=== PATIENT | male | born 1970 | race Caucasian/White ===

== ENCOUNTER 2019-02-01 21:03 | Emergency (ER) | payer MEDICAID ==
--- NOTE | 2019-02-01 21:13 | ED Physician Chart ---
ED Chief Complaint/HPI - Patient Information Date Seen:: 02/01/19 Time Seen:: 21:13 Chief Complaint:: Alcohol intoxication History of Present Illness:: 48 yo male was found sprawled outside [facility]. [place] squad and EMS was called. They found pt hardly responsive. They checked pt's blood glucose level at 511. Pt was then brought to ER for further evaluation. ED Review of Systems - Review of Systems General/Constitutional: No fever, No chills Skin: No skin lesions Head: No headache Eyes: No pain ENT: No nasal drainage Neck: No neck pain Cardio Vascular: No chest pain Pulmonary: No SOB GI: No nausea, No vomiting Musculoskeletal: No bone or joint pain Neurological: No focal symptoms ED Past Medical History - Past Medical History Past Medical History: HTN, DM, Other (questionable cancer) Social History: Non Smoker, Alcohol, No Drug Use Family Medical History - Family Member Mother History Unknown: Yes ED Physical Exam - Physical Examination Other Gen/Cons comments:: Drowsy, open eyes to voice Head: Atraumatic Eyes: PERRL, EOMI Skin: No skin lesions ENMT: Nasal exam nl Neck: No nuchal rigidity Respiratory: Clear to Auscultation Cardio Vascular: RRR, No murmur, gallop, rubs, NL S1 S2 GI: No tenderness/rebounding/guarding Extremities: normal strength in all extremities Neuro/Psych: No focal deficits Other Neuro/Psych comments:: Follows command ED Labs/Radiology/EKG Results - Lab Results Results: Laboratory Last Values WBC 4.0 Th/cmm (4.8-10.8) L 02/01/19 21:40 RBC 4.24 Mil/cmm (4.30-5.70) L 02/01/19 21:40 Hgb 11.3 gm/dL (12-16) L 02/01/19 21:40 Hct 34.3 % (41.0-60) L 02/01/19 21:40 MCV 81.0 fl (80-99) 02/01/19 21:40 MCH 26.6 pg (26.0-30.0) 02/01/19 21:40 MCHC Differential 32.9 pg (28.0-36.0) 02/01/19 21:40 RDW 15.0 % (11.5-20.0) 02/01/19 21:40 Plt Count 326 Th/cmm (150-400) 02/01/19 21:40 MPV 7.1 fl 02/01/19 21:40 Neutrophils % 57.2 % (40.0-80.0) 02/01/19 21:40 Lymphocytes % 28.6 % (20.0-50.0) 02/01/19 21:40 Monocytes % 10.3 % (2.0-10.0) H 02/01/19 21:40 Eosinophils % 2.1 % (0.0-5.0) 02/01/19 21:40 Basophils % 1.8 % (0.0-2.0) 02/01/19 21:40 PT 9.5 SECONDS (9.5-11.5) 02/01/19 21:41 INR 0.91 (0.5-1.4) 02/01/19 21:41 PTT (Actin FS) 24.5 SECONDS (26.0-38.0) L 02/01/19 21:41 Sodium 137 mEq/L (136-145) 02/01/19 21:41 Potassium 4.0 mEq/L (3.5-5.1) 02/01/19 21:41 Chloride 99 mEq/L (98-107) 02/01/19 21:41 Carbon Dioxide 26.9 mEq/L (21.0-31.0) 02/01/19 21:41 Anion Gap 15.1 (7.0-16.0) 02/01/19 21:41 BUN 11 mg/dL (7-25) 02/01/19 21:41 Creatinine 1.0 mg/dL (0.7-1.3) 02/01/19 21:41 Est GFR ( Amer) > 60.0 ml/min (>90) 02/01/19 21:41 Est GFR (Non-Af Amer) > 60.0 ml/min 02/01/19 21:41 BUN/Creatinine Ratio 11.0 02/01/19 21:41 Glucose 442 mg/dL (70-105) H 02/01/19 21:41 POC Glucose 305 MG/DL (70 - 105) H 02/02/19 05:53 Whole Bld Lactic Acid 3.38 mmol/L (0.60-1.99) H* 02/01/19 23:47 Calcium 9.1 mg/dL (8.6-10.3) 02/01/19 21:41 Total Bilirubin 0.3 mg/dL (0.3-1.0) 02/01/19 21:41 AST 28 U/L (13-39) 02/01/19 21:41 ALT 15 U/L (7-52) 02/01/19 21:41 Alkaline Phosphatase 45 U/L (34-104) 02/01/19 21:41 Creatine Kinase 350 U/L (30-223) H 02/01/19 21:41 CK-MB (CK-2) 11.3 ng/mL (0.6-6.3) H 02/01/19 21:41 Troponin I < 0.01 ng/mL (0.01-0.05) L 02/01/19 21:41 B-Natriuretic Peptide 8.9 pg/mL (5.0-100.0) 02/01/19 21:41 Total Protein 7.3 gm/dL (6.0-8.3) 02/01/19 21:41 Albumin 4.1 gm/dL (4.2-5.5) L 02/01/19 21:41 Globulin 3.2 gm/dL 02/01/19 21:41 Albumin/Globulin Ratio 1.3 (1.0-1.8) 02/01/19 21:41 Urine Source CLEAN C 02/01/19 21:45 Urine Color YELLOW 02/01/19 21:45 Urine Clarity CLEAR (CLEAR) 02/01/19 21:45 Urine pH 5.5 (4.6 - 8.0) 02/01/19 21:45 Ur Specific [place] <= 1.005 (1.005-1.030) 02/01/19 21:45 Urine Protein NEGATIVE mg/dL (NEGATIVE) 02/01/19 21:45 Urine Glucose (UA) >=1000 mg/dL (NEGATIVE) H 02/01/19 21:45 Urine Ketones NEGATIVE mg/dL (NEGATIVE) 02/01/19 21:45 Urine Blood NEGATIVE (NEGATIVE) 02/01/19 21:45 Urine Nitrate NEGATIVE (NEGATIVE) 02/01/19 21:45 Urine Bilirubin NEGATIVE (NEGATIVE) 02/01/19 21:45 Urine Urobilinogen 0.2 E.U./dL (0.2 - 1.0) 02/01/19 21:45 Ur Leukocyte Esterase NEGATIVE (NEGATIVE) 02/01/19 21:45 Urine RBC NONE SEEN /hpf (0-5) 02/01/19 21:45 Urine WBC 0-2 /hpf (0-5) 02/01/19 21:45 Ur Epithelial Cells NONE SEEN /lpf (FEW) 02/01/19 21:45 Urine Bacteria OCCASIONAL /hpf (NONE SEEN) 02/01/19 21:45 Urine Opiates Screen NEGATIVE (NEGATIVE) 02/01/19 21:45 Urine Methadone Screen NEGATIVE (NEGATIVE) 02/01/19 21:45 Ur Barbiturates Screen NEGATIVE (NEGATIVE) 02/01/19 21:45 Ur Tricyclics Screen NEGATIVE (NEGATIVE) 02/01/19 21:45 Ur Phencyclidine Scrn NEGATIVE (NEGATIVE) 02/01/19 21:45 Amphetamines Screen NEGATIVE (NEGATIVE) 02/01/19 21:45 U Methamphetamines Scrn NEGATIVE (NEGATIVE) 02/01/19 21:45 U Benzodiazepines Scrn POSITIVE (NEGATIVE) H 02/01/19 21:45 U Cocaine Metab Screen NEGATIVE (NEGATIVE) 02/01/19 21:45 U Cannabinoids Screen NEGATIVE (NEGATIVE) 02/01/19 21:45 Ethyl Alcohol 400 mg/dL (0-10) H 02/01/19 21:41 - Radiology Results Results: CXR: no focal consolidation ED Assessment - Assessment General Assessment: Altered mental status Alcohol intoxication DM II with hyperglycemia Leukopenia Anemia, normocytic Assessment/Comments:: CBC, CMP, PT/PTT, Trop, CK NS 1L IV bolus Regular insulin 10 units SC ED Septic Shock - . Is Septic Shock (SBP<90, OR Lactate>4 mmol\L) present?: No ED Reassessment (Disposition) - Reassessment Reassessment:: Re-checked lactic acid 2 hours later, decreased from 3.5 to 3.38. Re-checked glucose level 8 hours later, decreased from 387 to 305. Reassessment Condition:: Improved - Patient Disposition Discharge/Transfer:: Against Medical Advice
[2019-02-01 21:53] LABS: % BASOPHILS 1.8 % (0.0-2.0); % EOSINOPHILS 2.1 % (0.0-5.0); % LYMPHOCYTES 28.6 % (20.0-50.0); % MONOCYTES 10.3 % (2.0-10.0); % NEUTROPHILS 57.2 % (40.0-80.0); BASOPHILE ABSOLUTE 0.1 Th/cumm (0-0.2); EOSINOPHILE ABSOLUTE 0.1 Th/cmm (0.1-0.4); HEMATOCRIT 34.3 % (41.0-60); HEMOGLOBIN 11.3 gm/dL (12-16); LYMPHOCYTE ABSOLUTE 1.1 Th/cmm (1.5-3.0); MEAN CORPUSCULAR HEMOGLOBIN 26.6 pg (26.0-30.0); MEAN CORPUSCULAR HGB CONC 32.9 pg (28.0-36.0); MONOCYTE ABSOLUTE 0.4 Th/cmm (0.3-1.0); NEUTROPHILE ABSOLUTE 2.3 Th/cmm (1.8-8.0); PLATELET COUNT 326 Th/cmm (150-400); RED BLOOD COUNT 4.24 Mil/cmm (4.30-5.70)
[2019-02-01 22:00] LABS: URINE SOURCE CLEAN C
[2019-02-01 22:01] LABS: INR 0.91 (0.5-1.4)
[2019-02-01 22:04] LABS: ALB/GLOB RATIO 1.3 (1.0-1.8); ALBUMIN 4.1 gm/dL (4.2-5.5); ALKALINE PHOSPHATASE 45 U/L (34-104); ANION GAP 15.1 (7.0-16.0); BILIRUBIN,TOTAL 0.3 mg/dL (0.3-1.0); BUN - UREA NITROGEN 11 mg/dL (7-25); CALCIUM SERUM 9.1 mg/dL (8.6-10.3); CARBON DIOXIDE 26.9 mEq/L (21.0-31.0); CHLORIDE 99 mEq/L (98-107); CREATININE KINASE 350 U/L (30-223); GFR AFRICAN-AMERICAN > 60.0 ml/min (>90); GFR NON AFRICAN-AMERICAN > 60.0 ml/min; GLUCOSE 442 mg/dL (70-105); SGOT 28 U/L (13-39); SGPT/ALT 15 U/L (7-52); SODIUM SERUM 137 mEq/L (136-145); TOTAL PROTEIN,SERUM 7.3 gm/dL (6.0-8.3)
[2019-02-01 22:06] LABS: URINE BILIRUBIN NEGATIVE (NEGATIVE); URINE BLOOD NEGATIVE (NEGATIVE); URINE GLUCOSE (UA) >=1000 mg/dL (NEGATIVE); URINE KETONE NEGATIVE (NEGATIVE); URINE LEUKOCYTE ESTERASE NEGATIVE (NEGATIVE); URINE MICROSCOPIC INDICATED? YES; URINE NITRATE NEGATIVE (NEGATIVE); URINE PH 5.5 (4.6 - 8.0); URINE PROTEIN NEGATIVE (NEGATIVE); URINE UROBILINOGEN 0.2 E.U./dL (0.2 - 1.0)
[2019-02-01 22:18] LABS: AMPHETAMINE URINE NEGATIVE (NEGATIVE); BARBITURATES URINE NEGATIVE (NEGATIVE); BENZODIAZEPINES QUAL URINE POSITIVE (NEGATIVE); CANNABINOID THC NEGATIVE (NEGATIVE); COCAINE METABOLITE QUAL URINE NEGATIVE (NEGATIVE); METHADONE URINE NEGATIVE (NEGATIVE); METHAMPHETAMINES QUAL URINE NEGATIVE (NEGATIVE); OPIATES (MORPHINE) QUAL. URINE NEGATIVE (NEGATIVE); PHENCYCLIDINE (PCP) URINE NEGATIVE (NEGATIVE); TRICYCLICS (TCA) QUAL. URINE NEGATIVE (NEGATIVE)
[2019-02-01] MEDS: Sodium Chloride 0.9% 1,000 ML IV ONE (22:21)
[2019-02-01] MEDS: INSULIN HUMAN REGULAR 100 UNITS/ML UNIT SUBQ ONE (22:40)
[2019-02-01 23:01] LABS: URINE CLARITY CLEAR (CLEAR); URINE COLOR YELLOW
[2019-02-01 23:04] LABS: URINE RBC NONE SEEN /hpf (0-5); URINE WBC 0-2 /hpf (0-5)
[2019-02-01 23:05] LABS: URINE BACTERIA OCCASIONAL /hpf (NONE SEEN); URINE EPITHELIAL CELLS NONE SEEN /lpf (FEW)
--- NOTE | 2019-02-02 08:45 | Diagnostic Imaging Report ---
CHEST X-RAY: AP view INDICATION: Shortness of breath COMPARISON: None FINDINGS: Suboptimal lung volumes are seen with increased interstitial lung markings. There is no focal consolidation or pleural effusions. Mild cardiomegaly is noted. The osseous structures are intact. IMPRESSION: Suboptimal lung markings increased interstitial lung markings, nonspecific. No focal consolidation identified. Mild cardiomegaly.
[2019-02-03 06:06] LABS: A1C 10.1 % (4.8-5.6)
== END 2019-02-02 06:10 | disposition left against medical advice (07) ==
LOC: ER 21:03
DX: F10.129 Alcohol abuse with intoxication, unspecified (principal); E11.65 Type 2 diabetes mellitus with hyperglycemia; D64.9 Anemia, unspecified; D72.819 Decreased white blood cell count, unspecified; R41.82 Altered mental status, unspecified; I10 Essential (primary) hypertension; Z88.5 Allergy status to narcotic agent; Z88.8 Allergy status to other drugs, medicaments and biological substances; Y90.8 Blood alcohol level of 240 mg/100 ml or more
CPT/HCPCS: 99284; 93005; 71045; 84484; 83880; 36415; 36416 ×2; 82948 ×2; 83605 ×2; 80307; 85025; 85610; 81001; 80320; 82550; 82553; 83036; 80053; 87040; J1815; J7030